=== PATIENT | female | born 1990 | race Caucasian/White ===

== ENCOUNTER 2018-05-29 19:21 | Emergency (ER) | payer SELFPAY ==
[2018-05-29 19:39] VITALS: BP 147/95; PULSE 100; TEMP 97.8; BMI 29.2
--- NOTE | 2018-05-29 19:54 | PDOC ---
History of Present Illness - General History Source: Patient, Significant Other Exam Limitations: No Limitations - History of Present Illness Initial Comments: 05/29/18 20:33 Patient is a 27 year old female with no significant past medical history who presents to the ED with complaints of back pain that began x1 week ago. Patient reports experiencing lower back pain as well as associated symptoms of intermittent muscle tremors, chest pain, subjective fevers, and diarrhea. She reports experiencing these symptoms for almost 1 year but states they have all increased in intensity for the last week. Patient reports experiencing decreased appetite, secondary to back pain stating the back pain begins shortly after she eats any kind of food. Patient reports experiencing x4 episodes of diarrhea this morning shortly after waking up, prompting her to come into the ED for further evaluation. Patient states her lmp was 1 week ago and has been noticeably regular for the last few months. Denies chest pain, Sob. Denies nausea, vomiting. Denies fevers, chills. Denies contact with sick individuals, out of state travelling. Denies any other symptoms. Allergies: metoclopramide, Gadolinium-Containing, Contrast Social history: No smoking. No alcohol. No illicit drugs. Surgical history: None PMD: None <Kenneth Fairchild - Last Filed: 05/29/18 20:33> <Abigail Moraes - Last Filed: 05/30/18 01:56> - General Chief Complaint: Diarrhea Stated Complaint: DIARRHEA Time Seen by Provider: 05/29/18 19:40 Past History <Kenneth Fairchild - Last Filed: 05/29/18 20:33> - Past Medical History COPD: No GI Disorders: Yes (MILD REFLUX) - Suicide/Smoking/Psychosocial Hx Smoking History: Never smoked Hx Alcohol Use: No Drug/Substance Use Hx: No Substance Use Type: None <Abigail Moraes - Last Filed: 05/30/18 01:56> - Past Medical History Allergies/Adverse Reactions: Allergies Allergy/AdvReac Type Severity Reaction Status Date / Time metoclopramide [From Reglan] Allergy Intermediate Verified 05/29/18 19:33 Gadolinium-Containing Allergy Unknown Verified 05/29/18 19:33 Contrast Medi Iodinated Contrast- Oral and Allergy Unknown Verified 05/29/18 19:33 IV Dye Home Medications: Ambulatory Orders NK [No Known Home Medication] 05/29/18 Review of Systems - Review of Systems Able to Perform ROS?: Yes Comments:: 05/29/18 20:33 GENERAL/CONSTITUTIONAL: +subjective fever. No chills. No weakness. HEAD, EYES, EARS, NOSE AND THROAT: No change in vision. No ear pain or discharge. No sore throat. CARDIOVASCULAR: +chest pain. No shortness of breath. RESPIRATORY: No cough, wheezing, or hemoptysis. GASTROINTESTINAL: +diarrhea. No nausea, vomiting, or constipation. GENITOURINARY: No dysuria, frequency, or change in urination. MUSCULOSKELETAL: +Muscle tremors No joint or muscle swelling or pain. No neck or back pain. SKIN: No rash NEUROLOGIC: No headache, vertigo, loss of consciousness, or change in strength/ sensation. ENDOCRINE: No increased thirst. No abnormal weight change. HEMATOLOGIC/LYMPHATIC: No anemia, easy bleeding, or history of blood clots. ALLERGIC/IMMUNOLOGIC: No hives or skin allergy. <Kenneth Fairchild - Last Filed: 05/29/18 20:33> *Physical Exam - Vital Signs Last Vital Signs Temp Pulse Resp BP Pulse Ox 97.8 F 100 H 20 147/95 100 05/29/18 19:29 05/29/18 19:29 05/29/18 19:29 05/29/18 19:29 05/29/18 19:29 - Physical Exam Comments: 05/29/18 20:33 GENERAL: Awake, alert, and fully oriented, in no acute distress HEAD: No signs of trauma EYES: PERRLA, EOMI, sclera anicteric, conjunctiva clear ENT: Auricles normal inspection, hearing grossly normal, nares patent, oropharynx clear without exudates. Moist mucosa NECK: Normal ROM, supple, no lymphadenopathy, JVD, or masses LUNGS: Breath sounds equal, clear to auscultation bilaterally. No wheezes, and no crackles HEART: Regular rate and rhythm, normal S1 and S2, no murmurs, rubs or gallops ABDOMEN: Soft, nontender, normoactive bowel sounds. No guarding, no rebound. No masses EXTREMITIES: Normal range of motion, no edema. No clubbing or cyanosis. No cords, erythema, or tenderness NEUROLOGICAL: Cranial nerves II through XII grossly intact. Normal speech, normal gait SKIN: Warm, Dry, normal turgor, no rashes or lesions noted. <Kenneth Fairchild - Last Filed: 05/29/18 20:33> - Vital Signs Last Vital Signs Temp Pulse Resp BP Pulse Ox 97.8 F 100 H 20 147/95 100 05/29/18 19:29 05/29/18 19:29 05/29/18 19:29 05/29/18 19:29 05/29/18 19:29 <Abigail Moraes - Last Filed: 05/30/18 01:56> Moderate Sedation - Procedure Monitoring Vital Signs: Procedure Monitoring Vital Signs Temperature 97.8 F 05/29/18 19:29 Pulse Rate 100 H 05/29/18 19:29 Respiratory Rate 20 05/29/18 19:29 Blood Pressure 147/95 05/29/18 19:29 O2 Sat by Pulse Oximetry (%) 100 05/29/18 19:29 <Kenneth Fairchild - Last Filed: 05/29/18 20:33> - Procedure Monitoring Vital Signs: Procedure Monitoring Vital Signs Temperature 97.8 F 05/29/18 19:29 Pulse Rate 100 H 05/29/18 19:29 Respiratory Rate 20 05/29/18 19:29 Blood Pressure 147/95 05/29/18 19:29 O2 Sat by Pulse Oximetry (%) 100 05/29/18 19:29 <Abigail Moraes - Last Filed: 05/30/18 01:56> ED Treatment Course - ADDITIONAL ORDERS Additional order review: Laboratory Results 05/29/18 19:55 Urine Color Yellow Urine Appearance Clear Urine pH 7.0 Ur Specific [place] 1.010 Urine Protein Negative Urine Glucose (UA) Negative Urine Ketones Negative Urine Blood 2+ H Urine Nitrite Negative Urine Bilirubin Negative Urine Urobilinogen 0.2 Ur Leukocyte Esterase Negative Urine RBC 5-10 Urine WBC 0-2 Urine Bacteria 1+ Urine HCG, Qual Negative <Kenneth Fairchild - Last Filed: 05/29/18 20:33> - LABORATORY CBC & Chemistry Diagram: 05/29/18 20:25 05/29/18 20:25 <Abigail Moraes - Last Filed: 05/30/18 01:56> Progress Note - Progress Note Progress Note: Documentation has been prepared under my direction and personally reviewed by me in its entirety. I attest that this documented accurately reflects all work, treatment, procedures and medical decision making performed by me. <Abigail Moraes - Last Filed: 05/30/18 01:56> Medical Decision Making - Medical Decision Making As noted above, this 27-year-old woman presents with multiple complaints. The most troubling to the patient is recurrent muscle spasms and tremors. Exam as noted. Laboratory evaluation was performed to check for electrolyte abnormalities in light of worsening symptoms after diarrhea. Patient was also given a liter of normal saline to counteract any effects of dehydration on muscle spasm. Toradol 30 mg IV administered, primarily to alleviate the patient's lower back pain. Lab testing revealed no evidence of hypokalemia, hypomagnesemia or other electrolyte abnormality. Patient will be discharged with instructions to continue to drink plenty of water to avoid dehydration. She has never had any neurologic workup of tremors or extremity pain consistent with neuropathy. Referral to suggested with contact information provided <Abigail Moraes - Last Filed: 05/30/18 01:56> *DC/Admit/Observation/Transfer - Attestations Scribe Attestion: 05/29/18 20:34 Documentation prepared by Kenneth Fairchild, acting as biomedical technician for Abigail Moraes MD. <Kenneth Fairchild - Last Filed: 05/29/18 20:33> <Abigail Moraes - Last Filed: 05/30/18 01:56> Diagnosis at time of Disposition: Muscle tremor - Discharge Dispostion Disposition: HOME Condition at time of disposition: Stable - Referrals Referrals: Allen Jean MD [Staff Physician] - - Patient Instructions Additional Instructions: Rest; drink plenty of water Return to ER if you have severe pain/fever/vomiting Follow-up with neurologist () regarding tremors within 1 week[call office tomorrow]
[2018-05-29 20:06] LABS: URINE APPEARANCE Clear; URINE BILIRUBIN Negative (NEGATIVE); URINE COLOR Yellow; URINE GLUCOSE (UA) Negative (NEGATIVE); URINE KETONE Negative (NEGATIVE); URINE LEUK ESTERASE Negative (NEGATIVE); URINE NITRITE Negative (NEGATIVE); URINE PROTEIN Negative (NEGATIVE); URINE UROBILINOGEN 0.2 (0.2-1.0)
[2018-05-29] MEDS ORDERED: SODIUM CHLORIDE 1,000 ML IV STA (20:12)
[2018-05-29] MEDS ORDERED: KETOROLAC TROMETHAMINE 30 MG/1 ML VIAL IVPUSH ONE (20:12)
[2018-05-29] MEDS ORDERED: KETOROLAC TROMETHAMINE 30 MG/1 ML VIAL ONE (20:14)
[2018-05-29 20:18] LABS: HCG,QUALITATIVE URINE Negative
[2018-05-29 20:23] LABS: URINE BACTERIA 1+ /hpf (NEGATIVE); URINE WBC 0-2 (0-5)
[2018-05-29 20:38] LABS: BASO % 0.6 % (0-2.0); EOS % 2.1 % (0-4.5); HEMATOCRIT 39.8 % (32.4-45.2); HEMOGLOBIN 12.7 GM/dl (10.7-15.3); LYMPH % 30.8 % (8-40); MCH 25.1 pg (25.7-33.7); MEAN CELL VOLUME 78.5 fl (80-96); MEAN PLT VOLUME 8.3 fl (7.5-11.1); MONO % 6.9 % (3.8-10.2); NEUT % 59.6 % (42.8-82.8); PLATELET COUNT 324 K/MM3 (134-434); RBC 5.07 M/mm3 (3.60-5.2); RDW 14.8 % (11.6-15.6); WHITE BLOOD COUNT 7.5 K/mm3 (4.0-10.8)
[2018-05-29 20:52] LABS: ALK PHOS 79 U/L (32-92); ANION GAP 10 MMOL/L (8-16); BILIRUBIN,TOTAL 0.3 mg/dl (0.2-1.0); BLOOD UREA NITROGEN 8 mg/dl (7-18); CALCIUM 9.1 mg/dl (8.4-10.2); CHLORIDE 104 mmol/L (98-107); CO2 23 mmol/L (22-28); CREATININE 0.8 mg/dl (0.6-1.3); GLUCOSE,RANDOM 90 mg/dl (74-106); MAGNESIUM 2.1 mg/dL (1.8-2.4); POTASSIUM 4.2 mmol/L (3.5-5.1); SGOT/AST 26 U/L (10-42); SGPT/ALT 21 U/L (10-40); SODIUM 137 mmol/L (136-145); TOT PROT 7.2 g/dl (6.4-8.3)
== END 2018-05-29 22:03 | disposition home or self-care (01) ==
LOC: FER 19:21
PROC: 3E0333Z Introduction of Anti-inflammatory into Peripheral Vein, Percutaneous Approach (ICD-10-PCS; principal; 2018-05-29)
PROC: 3E0337Z Introduction of Electrolytic and Water Balance Substance into Peripheral Vein, Percutaneous Approach (ICD-10-PCS; 2018-05-29)
DX: R25.1 Tremor, unspecified (principal)
CPT/HCPCS: 36415; 80053; 81003; 81015; 83735; 84703; 85025; 99283-25; J7030

== ENCOUNTER 2018-12-04 11:13 | Emergency (ER) | payer OTHER ==
[2018-12-04 11:26] VITALS: BMI 29.2
--- NOTE | 2018-12-04 11:26 | PDOC ---
History of Present Illness - General Chief Complaint: Palpitations Stated Complaint: CHEST PAIN, PALPITATIONS Time Seen by Provider: 12/04/18 11:25 History Source: Patient Exam Limitations: No Limitations - History of Present Illness Initial Comments: 12/04/18 11:58 HPI 28 YOF with h/o migraines presenting with occipital headache, neck pain, dizziness, chest pain, palpitations x 4 days. she states she has experienced periods of left sided neck pain x 1 year, but worsening over the past 4 days with feeling of "hot fluid rushing up her neck to her head) and associated with intermittent palpitations and chest pain, which is also described as "pins" and sharp sensation. yesterday she had an episode of left arm numbness and weakness suddenly, since resolved. she describes dizziness like vertigo, worse with head movements and standing. neck pain described as "stiff" but no fevers or chills. has seen neurology for similar sx, unclear diagnosis at this time and was told this could be neuropathy. no recent stressors or triggers or traumas. did perform some light activity, machine steps prior to onset of sx about 4 days ago. Denies fever, chills, ear pain, sore throat, congestion, cough, SOB, N, V, D, abdominal pain, bladder and bowel problems, leg swelling, No sick contacts or travel. No new changes in medications. No suspicious food intake. no OTC or herbal remedies usage. no OCP use, denies Allergies: Reglan, gadolinium and iodine contrast. Past Medical History: as documented in EMR/HPI Social history: No tobacco, ETOH or drug use. Surgical history: none Meds: as documented in EMR PMD: Dr Barrientos 12/04/18 12:02 12/04/18 12:05 12/04/18 12:51 Past History - Past Medical History Allergies/Adverse Reactions: Allergies Allergy/AdvReac Type Severity Reaction Status Date / Time metoclopramide [From Reglan] Allergy Intermediate Verified 12/04/18 11:22 Gadolinium-Containing Allergy Unknown Verified 12/04/18 11:22 Contrast Medi Iodinated Contrast- Oral and Allergy Unknown Verified 12/04/18 11:22 IV Dye Home Medications: Ambulatory Orders Meclizine HCl [Antivert -] 25 mg PO TID PRN #21 tablet 12/04/18 COPD: No GI Disorders: Yes (MILD REFLUX) - Suicide/Smoking/Psychosocial Hx Smoking History: Never smoked Hx Alcohol Use: No Drug/Substance Use Hx: No Substance Use Type: None Review of Systems - Review of Systems Able to Perform ROS?: Yes Comments:: 12/04/18 12:03 Review of systems Constitutional: no fevers or chills. HEENT: +headache or dizziness. No congestion. No visual/hearing disturbances. CVS: no syncope. +chest pain, +palpitations Resp: no sob. No cough. Gastrointestinal: no abdominal pain, nausea or vomiting. Genitourinary: no urinary sx, hematuria. MUSCULOSKELETAL: No joint pain and swelling. + neck or back pain, +stiffness. SKIN: no redness or skin changes, no discharge, no rash. No wounds. Hematologic: no easy bruising/bleeding. NEUROLOGIC: +headache, dizziness, No seizure, LOC or altered mental status. + weakness, numbness or tingling. Psych: +anxiety Allergic/Immunologic: +medication allergies All other systems reviewed and negative, or as documented in HPI. *Physical Exam - Vital Signs Last Vital Signs Temp Pulse Resp BP Pulse Ox 98.5 F 99 H 18 125/45 L 100 12/04/18 11:13 12/04/18 11:13 12/04/18 11:13 12/04/18 11:13 12/04/18 11:13 - Physical Exam Comments: 12/04/18 12:04 Physical exam: General: Well appearing, awake and alert, NAD. HEENT: NCAT, PERRL, EOMI, clear conjunctiva, anicteric, moist mucus membranes, clear oropharynx, no oral lesions.. bilateral TM clear with some cerumen in auditory canal. Neck: neck supple, FROM; +left lateral cervical and trapezius point tenderness. +occipital point TTP Resp: CTAB, normal and even respirations, no respiratory distress CVS: +tachycardia, no murmurs, 2+ peripheral pulses throughout, no peripheral edema Abdomen: soft, NTND, no peritoneal signs. Back: nontender, normal inspection and ROM MSK: no edema, SCHMID x4, ROM intact. No clubbing or cyanosis. normal bulk and tone. Neuro: Alert, oriented to person time and place. No carotid bruit, CN II-XII grossly intact. Strength prox and distally 5/5 throughout. Sensation grossly intact to light touch. SCHMID x4. No cerebellar signs, no dysmetria, bilateral finger to nose and heel to palafox equal and symmetric. Speech clear. crosses legs. Psych: calm and cooperative, mildly anxious Skin: warm and well perfused, cap refill <2 sec, normal color 12/04/18 14:04 Heart Score/ECG Review #1 ECG reviewed & interpreted by me at: 11:30 General ECG Interpretation: Sinus Rhythm, Normal Rate, Normal Intervals 12/04/18 12:52 EKG normal sinus rhythm at 79 bpm, no interval abnormalities, narrow QRS, ST and T wave segments and morphology normal. Nonspecific T wave abnormalities ED Treatment Course - LABORATORY CBC & Chemistry Diagram: 12/04/18 12:15 12/04/18 11:57 - ADDITIONAL ORDERS Additional order review: Laboratory Results 12/04/18 12/04/18 12/04/18 12:10 12:00 12:00 D-Dimer < 215 Sodium Potassium Chloride Carbon Dioxide Anion Gap BUN Creatinine Est GFR (CKD-EPI)AfAm Est GFR (CKD-EPI)NonAf Random Glucose Calcium Total Bilirubin AST ALT Alkaline Phosphatase Troponin I < 0.03 Total Protein Albumin Urine HCG, Qual Negative 12/04/18 11:57 D-Dimer Sodium 136 Potassium 4.1 Chloride 100 Carbon Dioxide 27 Anion Gap 9 BUN 9.0 Creatinine 0.9 Est GFR (CKD-EPI)AfAm 100.85 Est GFR (CKD-EPI)NonAf 87.01 Random Glucose 146 H Calcium 8.9 Total Bilirubin 0.7 AST 21 ALT 10 L Alkaline Phosphatase 65 Troponin I Total Protein 7.1 Albumin 3.9 Urine HCG, Qual 12/04/18 12:15 RBC 4.90 MCV 77.4 L MCHC 32.1 RDW 16.7 H MPV 9.0 Neutrophils % 65.7 Lymphocytes % 25.5 Monocytes % 7.2 Eosinophils % 1.0 Basophils % 0.6 - RADIOLOGY Radiology Studies Ordered: Category Date Time Status HEAD CT WITHOUT CONTRAST [CT] Stat CT Scan 12/04/18 12:02 Completed CHEST PA & LAT [RAD] Stat Radiology 12/04/18 11:57 Completed - Medications Given in the ED: ED Medications Discontinued Medications Generic Name Dose Route Start Last Admin Trade Name Freq PRN Reason Stop Dose Admin Acetaminophen 650 mg 12/04/18 13:50 12/04/18 14:00 Tylenol - PO 12/04/18 13:51 650 mg ONCE ONE Administration Sodium Chloride 1,000 mls @ 1,000 mls/hr 12/04/18 11:57 12/04/18 12:45 Normal Saline - IV 12/04/18 12:56 1,000 mls/hr ASDIR STA Administration Ketorolac Tromethamine 15 mg 12/04/18 11:58 12/04/18 12:45 Toradol Injection - IVPUSH 12/04/18 11:59 15 mg ONCE ONE Administration Lidocaine 1 patch 12/04/18 11:58 12/04/18 12:44 Lidoderm Patch - TP 12/04/18 11:59 1 patch ONCE ONE Administration Meclizine HCl 25 mg 12/04/18 11:58 12/04/18 12:44 Antivert - PO 12/04/18 11:59 25 mg ONCE ONE Administration Medical Decision Making - Medical Decision Making 12/04/18 12:46 See HPI for details. Prior notes reviewed, including admissions, discharges and consultations. Vital signs reviewed, wnl. intermittent periods of tachycardia no hypoxia. nontoxic, no systemic sx neuro intact unable to perc out, due to periods of tachycardia with cp/palpitations, dimer sent DDX arrhythmia, anxiety, neuropathy, msk strain, neuralgia, migraine, tension TANNER , cluster TANNER, HAND FUR CLEANER lesion. PE. laboratory results and imaging reviewed, basic labs and lytes wnl, CT head neg for HAND FUR CLEANER pathology, lesion or bleed CXR_no acute pathology, normal cardiac silhouette, no effusion or edema or infiltrate Cardiac panel_negative, unlikely cardiac dimer_negative. reassuring, less likely PE EKG normal sinus rhythm at 79 bpm, no interval abnormalities, narrow QRS, ST and T wave segments and morphology normal. Nonspecific T wave abnormalities ED course -interventions: IVF, analgesia, toradol, lido patch and meclizine for vertigo, appearing peripheral no central findings, gait stable, neuro intact 12/04/18 14:03 on reassessment, feels better, symptoms resolved. tele monitor no events, periods of tachycardia improved VS wnl. comfortable with discharge. supportive measures, prevent triggers, hydration rx meclizine for peripheral vertigo sx, otc motrin/tylenol prn for pain, lido patch for the neck spasms/pain/trigger points. compresses, massage therapy and ROM exercises Pt to be discharged in stable condition. Patient and family made aware of clinical impression, treatment recommendations and disposition plan, return precautions discussed (including but not limited to new or persistent/worsening symptoms, pain, fevers, or signs of infection, chest pain, respiratory distress , inability to tolerate oral intake, dehydration, syncope, or neurologic changes ). Follow up with PMD and/or specialists (neuro and ENT) as recommended, referrals given, follow up information provided, take medications as instructed for duration of time. continue with supportive care, avoid triggers and precipitants. All questions answered to patient's satisfaction and expressed understanding and comfort with this. At the time of discharge, the patient is alert, clinically improved, tolerating po and verbalizes understanding of instructions, satisfied with the care received and felt comfortable with the plan. Patient does not suffer from an acute life-threatening medical condition at this time and is safe for outpatient follow-up. 12/04/18 14:12 *DC/Admit/Observation/Transfer Diagnosis at time of Disposition: Palpitations, Neck pain, Vertigo - Discharge Dispostion Disposition: HOME Condition at time of disposition: Improved Decision to Admit order: No - Prescriptions Prescriptions: Meclizine HCl [Antivert -] 25 mg PO TID PRN #21 tablet PRN Reason: dizziness - Referrals Referrals: [facility] [place] [Provider Group] [facility] [Provider Group] Anjel Ko MD [Staff Physician] - Rafael Kelly MD [Staff Physician] - Aris Diaz MD [Staff Physician] - Oral Escobar MD [Staff Physician] - Allen Jean MD [Staff Physician] - - Patient Instructions Printed Discharge Instructions: Vertigo, DI for Headache, DI for Neck Pain, DI for Palpitations Additional Instructions: 1) Please follow-up with your primary care doctor in the next 1-2 days. Please call tomorrow for for any urgent issues. this could be vertigo related symptoms, neck spasms and palpitations related to your presentation 2) You were given a copy of the tests performed today. Please bring the results with you and review them with your primary care doctor. Your laboratory / cardiac enzymes, imaging results were normal, including xray and CT head. 3) If you have any worsening of symptoms or any other concerns please return to the ED immediately. Return if worsening symptoms including fevers, headache, vomiting, visual or hearing disturbances, abdominal pain, chest pain, shortness of breath, syncope, dehydration, inability to take things by mouth/vomiting, altered mental status, or worsening concerning symptoms. 4) Please continue taking your home medications as directed. your medications on discharge include meclizine three times a day as needed for dizziness/ vertigo . side effects may include upset stomach, abdominal pain, vomiting, or diarrhea. do not drink alcohol with your medications. this may also cause drowsiness and sleepiness, do not operate machinery or drive while taking. motrin/and or tylenol over the counter for pain control you can also use topical lidoderm patches over the area of your neck affected for pain control, this is available over the counter. Stay well hydrated and rest adequately. Make an appointment with primary doctor and neurologist/ENT specialists for proper followup. If you cannot follow -up with your primary care doctor please return to the ED - Post Discharge Activity Forms/Work/School Notes: Back to Work
[2018-12-04] MEDS ORDERED: SODIUM CHLORIDE 1,000 ML IV STA (11:57)
[2018-12-04] MEDS ORDERED: LIDOCAINE 5% TOPICAL PATCH TP ONE (11:58)
[2018-12-04] MEDS ORDERED: KETOROLAC TROMETHAMINE 15 MG/ML VIAL IVPUSH ONE (11:58)
[2018-12-04] MEDS ORDERED: MECLIZINE HCL 25 MG TABLET (FP) PO ONE (11:58)
[2018-12-04] MEDS ORDERED: MECLIZINE HCL 25 MG TABLET (FP) ONE (12:26)
[2018-12-04] MEDS ORDERED: KETOROLAC TROMETHAMINE 15 MG/ML VIAL ONE (12:27)
[2018-12-04] MEDS ORDERED: LIDOCAINE 5% TOPICAL PATCH ONE (12:27)
[2018-12-04 12:54] LABS: ALBUMIN 3.9 g/dl (3.4-5.0); BILIRUBIN,TOTAL 0.7 mg/dl (0.2-1); CALCIUM 8.9 mg/dl (8.5-10); CREATININE 0.9 mg/dl (0.55-1.3); POTASSIUM 4.1 mmol/L (3.5-5.1); TOT PROT 7.1 g/dl (6.4-8.2)
[2018-12-04 13:30] LABS: BASO % 0.6 % (0-2.0); HEMATOCRIT 37.9 % (32.4-45.2); HEMOGLOBIN 12.2 GM/dL (10.7-15.3); LYMPH % 25.5 % (8-40); MCH 24.8 pg (25.7-33.7); MCHC 32.1 g/dl (32.0-36.0); MEAN CELL VOLUME 77.4 fl (80-96); MONO % 7.2 % (3.8-10.2); NEUT % 65.7 % (42.8-82.8); PLATELET COUNT 293 K/MM3 (134-434); RDW 16.7 % (11.6-15.6); WHITE BLOOD COUNT 6.7 K/mm3 (4.0-10.0)
[2018-12-04] MEDS ORDERED: ACETAMINOPHEN 325 MG TABLET (FP) PO ONE (13:50)
[2018-12-04] MEDS ORDERED: ACETAMINOPHEN 325 MG TABLET (FP) ONE (13:53)
[2018-12-04 15:10] VITALS: BP 128/77; PULSE 72; TEMP 98.3
--- NOTE | 2018-12-05 14:49 | EKG ---
Test Reason : Blood Pressure : / mmHG Vent. Rate : 079 BPM Atrial Rate : 079 BPM P-R Int : 136 ms QRS Dur : 082 ms QT Int : 352 ms P-R-T Axes : 035 016 027 degrees QTc Int : 403 ms NORMAL SINUS RHYTHM NORMAL ECG NO PREVIOUS ECGS AVAILABLE Confirmed by TAZ TREVINO MD ([id number]) on 12/05/2018 2:48:55 PM Referred By: MD ARBOLEDA Confirmed By:TAZ TREVINO MD
== END 2018-12-04 15:05 | disposition home or self-care (01) ==
LOC: FER 11:13
PROC: 3E0333Z Introduction of Anti-inflammatory into Peripheral Vein, Percutaneous Approach (ICD-10-PCS; principal; 2018-12-04)
PROC: 3E0337Z Introduction of Electrolytic and Water Balance Substance into Peripheral Vein, Percutaneous Approach (ICD-10-PCS; 2018-12-04)
DX: R00.2 Palpitations (principal); R42 Dizziness and giddiness; M54.2 Cervicalgia
CPT/HCPCS: 36415; 70450-TC; 71046-TC-FY; 80053; 84484; 84703; 85025; 85379; 93005; 99285-25; J7030